=== PATIENT | male | born 1975 | race Caucasian/White ===

== ENCOUNTER 2020-01-21 12:46 | Emergency (ER) | payer SELFPAY ==
[~2020-01-21] VITALS: Ht 172.7 cm; Wt 120.0 kg
--- NOTE | 2020-01-21 13:06 | PHYS DOC ---
General Adult EDM: Chief Complaint: FLANK PAIN HPI: HPI: History obtained from patient and . Patient is a 44-year-old male with past medical history notable for gout who presents with chief complaint of sudden onset left flank pain that began 5 hours prior to arrival. States pain is sharp in nature nature. States it is nonradiating. States it is difficulty comfortable. Start ibuprofen with no relief. Denies any history of kidney stones. Denies urinary changes including hematuria, polyuria, dysuria, or changes in urinary output. Notes 2 episodes of dry heaving. Denies fevers. Denies syncope. 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 No other abdominal surgical history. Denies cough or fever. Denies shortness of breath or chest pain. No other complaints. Review of Systems: Review of Systems: Constitutional: Denies fever or chills. [] Eyes: Denies change in visual acuity. [] HENT: Denies nasal congestion or sore throat. [] Respiratory: Denies cough or shortness of breath. [] Cardiovascular: Denies chest pain or edema. [] GI: Positive for nausea and flank pain : Denies dysuria. [] Musculoskeletal: Denies back pain or joint pain. [] Integument: Denies rash. [] Neurologic: Denies headache, focal weakness or sensory changes. [] Endocrine: Denies polyuria or polydipsia. [] Lymphatic: Denies swollen glands. [] Psychiatric: Denies depression or anxiety. [] Heart Score: Risk Factors: Risk Factors: DM, Current or recent (<one month) smoker, HTN, HLP, family history of CAD, obesity. Risk Scores: Score 0 - 3: 2.5% MACE over next 6 weeks - Discharge Home Score 4 - 6: 20.3% MACE over next 6 weeks - Admit for Clinical Observation Score 7 - 10: 72.7% MACE over next 6 weeks - Early Invasive Strategies Physical Exam: PE: Constitutional: Well developed, well nourished, no acute distress, non-toxic appearance. [] HENT: Normocephalic, atraumatic, bilateral external ears normal, oropharynx moist, no oral exudates, nose normal. [] Eyes: PERRLA, EOMI, conjunctiva normal, no discharge. [] Neck: Normal range of motion, no tenderness, supple, no stridor. [] Cardiovascular:Heart rate regular rhythm, no murmur [] Lungs & Thorax: Bilateral breath sounds clear to auscultation [] Abdomen: soft, no tenderness, no masses, no pulsatile masses. [] Skin: Warm, dry, no erythema, no rash. [] Back: + 5/5 motor strength in dorsiflexion and plantarflexion of the great toes bilaterally. Sensation intact between the webbing of the first and second toes bilaterally. Mild left CVA tenderness Extremities: No tenderness, no cyanosis, no clubbing, ROM intact, no edema. [] Neurologic: Alert and oriented X 3, normal motor function, normal sensory function, no focal deficits noted. [] Psychologic: Affect normal, judgement normal, mood normal. [] Current Patient Data: Labs: Laboratory Tests Test 01/21/20 12:15 01/21/20 13:04 Urine Collection Type Unknown Urine Color Yellow Urine Clarity Clear Urine pH 6.5 Urine Specific [place] 1.020 Urine Protein Negative mg/dL Urine Glucose (UA) Negative mg/dL Urine Ketones (Stick) Negative mg/dL Urine Blood Negative Urine Nitrite Negative Urine Bilirubin Negative Urine Urobilinogen Dipstick 0.2 mg/dL Urine Leukocyte Esterase Negative Urine RBC 1-2 /HPF Urine WBC Occ /HPF Urine Bacteria 0 /HPF Urine Mucus Mod /LPF White Blood Count 10.8 x10^3/uL Red Blood Count 5.27 x10^6/uL Hemoglobin 16.3 g/dL Hematocrit 46.2 % Mean Corpuscular Volume 88 fL Mean Corpuscular Hemoglobin 31 pg Mean Corpuscular Hemoglobin Concent 35 g/dL Red Cell Distribution Width 13.4 % Platelet Count 222 x10^3/uL Neutrophils (%) (Auto) 81 % Lymphocytes (%) (Auto) 13 % Monocytes (%) (Auto) 5 % Eosinophils (%) (Auto) 1 % Basophils (%) (Auto) 1 % Neutrophils # (Auto) 8.8 x10^3/uL Lymphocytes # (Auto) 1.4 x10^3/uL Monocytes # (Auto) 0.5 x10^3/uL Eosinophils # (Auto) 0.1 x10^3/uL Basophils # (Auto) 0.1 x10^3/uL Sodium Level 140 mmol/L Potassium Level 4.1 mmol/L Chloride Level 103 mmol/L Carbon Dioxide Level 25 mmol/L Anion Gap 12 Blood Urea Nitrogen 17 mg/dL Creatinine 1.4 mg/dL Estimated GFR (Cockcroft-Gault) 55.6 Glucose Level 135 mg/dL Calcium Level 8.8 mg/dL Current Medications Medications (Trade) Dose Ordered Sig/Wil Route PRN Reason Start Time Stop Time Status Last Admin Dose Admin Morphine Sulfate (Morphine Sulfate) 4 mg 1X ONCE IV 01/21/20 13:15 01/21/20 13:16 DC 01/21/20 13:14 Ondansetron HCl (Zofran) 4 mg 1X ONCE IVP 01/21/20 13:15 01/21/20 13:16 DC 01/21/20 13:14 Ketorolac Tromethamine (Toradol 15mg Vial) 15 mg 1X ONCE IVP 01/21/20 13:15 01/21/20 13:16 DC 01/21/20 13:14 Sodium Chloride 1,000 ml @ 1,000 mls/hr 1X ONCE IV 01/21/20 13:15 01/21/20 14:14 DC 01/21/20 13:15 Acetaminophen/ Hydrocodone Bitart (Lortab 5/325) 1 tab 1X ONCE PO 01/21/20 15:00 01/21/20 15:01 DC 01/21/20 15:12 Laboratory Tests Test 01/21/20 13:04 White Blood Count 10.8 x10^3/uL Red Blood Count 5.27 x10^6/uL Hemoglobin 16.3 g/dL Hematocrit 46.2 % Mean Corpuscular Volume 88 fL Mean Corpuscular Hemoglobin 31 pg Mean Corpuscular Hemoglobin Concent 35 g/dL Red Cell Distribution Width 13.4 % Platelet Count 222 x10^3/uL Neutrophils (%) (Auto) 81 % Lymphocytes (%) (Auto) 13 % Monocytes (%) (Auto) 5 % Eosinophils (%) (Auto) 1 % Basophils (%) (Auto) 1 % Neutrophils # (Auto) 8.8 x10^3/uL Lymphocytes # (Auto) 1.4 x10^3/uL Monocytes # (Auto) 0.5 x10^3/uL Eosinophils # (Auto) 0.1 x10^3/uL Basophils # (Auto) 0.1 x10^3/uL Sodium Level 140 mmol/L Potassium Level 4.1 mmol/L Chloride Level 103 mmol/L Carbon Dioxide Level 25 mmol/L Anion Gap 12 Blood Urea Nitrogen 17 mg/dL Creatinine 1.4 mg/dL Estimated GFR (Cockcroft-Gault) 55.6 Glucose Level 135 mg/dL Calcium Level 8.8 mg/dL Current Medications Medications (Trade) Dose Ordered Sig/Wil Route PRN Reason Start Time Stop Time Status Last Admin Dose Admin Morphine Sulfate (Morphine Sulfate) 4 mg 1X ONCE IV 01/21/20 13:15 01/21/20 13:16 DC 01/21/20 13:14 Ondansetron HCl (Zofran) 4 mg 1X ONCE IVP 01/21/20 13:15 01/21/20 13:16 DC 01/21/20 13:14 Ketorolac Tromethamine (Toradol 15mg Vial) 15 mg 1X ONCE IVP 01/21/20 13:15 01/21/20 13:16 DC 01/21/20 13:14 Sodium Chloride 1,000 ml @ 1,000 mls/hr 1X ONCE IV 01/21/20 13:15 01/21/20 14:14 DC 01/21/20 13:15 Vital Signs: Vital Signs Date Time Temp Pulse Resp B/P (MAP) Pulse Ox O2 Delivery O2 Flow Rate FiO2 01/21/20 13:14 16 99 Room Air 01/21/20 13:00 98.3 71 24 151/92 (111) 99 Room Air 98.3 EKG: EKG: [] Radiology/Procedures: Radiology/Procedures: [facility] [address] [place] [address] IMAGING REPORT Signed PATIENT: SOLANGE EARLY ACCOUNT: [id number] : 1975 LOCATION: ER AGE: 44 SEX: M EXAM STATUS: REG ER ORD. PHYSICIAN: SP CHEEMA DO REASON: L flank pain PROCEDURE: CT ABDOMEN PELVIS WO CONTRAST PQRS Compliance Statement: One or more of the following individualized dose reduction techniques were utilized for this examination: 1. Automated exposure control 2. Adjustment of the mA and/or kV according to patient size 3. Use of iterative reconstruction technique CT ABDOMEN PELVIS WO CONTRAST Clinical Indication: Reason: L flank pain / Spl. Instructions: / History: Comparison: None. Technique: Helical CT imaging of the abdomen and pelvis is performed without IV or oral contrast. Findings: Minimal bilateral lower lobe atelectasis posteriorly. Cardiac size normal. Mild fatty infiltration of the liver. Focal fatty sparing along the gallbladder fossa. Tiny fat density of the spleen. Gallbladder, pancreas, adrenal glands, and abdominal aorta are normal. There is an 11 mm gokul hepatis lymph node. The right kidney is normal. There is no left renal calculus. Mild left perinephric stranding. Mild left hydroureteronephrosis secondary to a 3 mm calculus at the left ureterovesicular junction, nearly in the bladder, image 218. The stomach is unremarkable. There is no dilated small bowel. The appendix is normal. There is no colon wall thickening. No abdominal adenopathy or free fluid. Subcentimeter mesenteric lymph nodes. The urinary bladder is normal. Prostate and seminal vesicles are normal. No pelvic free fluid. No acute bone abnormality. IMPRESSION: 1. Mild left obstructive uropathy secondary to a 3 mm calculus at the ureterovesicular junction. 2. Mild fatty infiltration of the liver. Electronically signed by: Salty Dailey MD (01/21/2020 2:26 PM) [id number] DICTATED and SIGNED BY: SALTY DAILEY MD DATE: 01/21/201425 [] Course & Med Decision Making: Course & Med Decision Making Pertinent Labs and Imaging studies reviewed. (See chart for details) [] Patient is a 44-year-old male who presents with chief complaint of sudden onset left flank pain. CT imaging does reveal a 3 mm mildly obstructive left kidney stone at the level of the UVJ. Very mild elevation of his creatinine at 1.4. Urinalysis without evidence of infection. Clinically patient does not endorse any infectious symptoms. I do feel the patient is overall appropriate for discharge home. His pain was well controlled in the emergency department he did tolerate p.o. He was instructed to follow-up with his primary care physician in the next 2 to 3 days. He will be given a referral to urology if needed. He will be discharged home with Myton, Zofran, and Flomax. Return precautions discussed and understood. Stable for discharge. Jalen Disclaimer: Jalen Disclaimer: This electronic medical record was generated, in whole or in part, using a voice recognition dictation system. Departure Departure Impression: Primary Impression: Ureterolithiasis Disposition: 01 DC HOME SELF CARE/HOMELESS Condition: STABLE Patient Instructions: Kidney Stones Additional Instructions: Urology Dr. Negro Day Brooker [address] [place] [address] Call Brooker [phone] Please follow-up with your primary care physician in the next 2 to 3 days. [facility] [address] [place] [address] [facility] [address] [place] [address] [facility] [address] [facility] [place] [address] [facility] [address] [place] [address] [facility] [address] [place] [address] [facility] [address] [place] [address] [facility] [address] [place] [address] [facility] [address] [place] [address] [facility] [address] [place] [address] [facility] [address] [place] [address] Scripts Tamsulosin Hcl (FLOMAX) 0.4 Mg Cap.er.24h 1 CAP PO QHS, #10 CAP 11 Refills Prov: SP CHEEMA DO 01/21/20 Ondansetron Hcl (ZOFRAN) 4 Mg Tablet 4 MG PO PRN TID PRN for NAUSEA, #15 nausea/vomiting Prov: SP CHEEMA DO 01/21/20 Hydrocodone/Apap 5-325 (NORCO 5-325 TABLET) 1 Each Tablet 1-2 EACH PO PRN Q6HRS PRN for PAIN, #10 as needed for pain Prov: SP CHEEMA DO 01/21/20 PS CHEEMA DO Jan 21, 2020 13:06
[2020-01-21 13:15] LABS: BASO # 0.1 x10^3/uL (0.0-0.2); BASO % 1 % (0-3); EOS # 0.1 x10^3/uL (0.0-0.7); EOS % 1 % (0-3); HEMATOCRIT 46.2 % (39.0-53.0); HEMOGLOBIN 16.3 g/dL (13.0-17.5); LYMPH # 1.4 x10^3/uL (1.0-4.8); LYMPH % 13 % (24-48); MEAN CORPUSCULAR HEMOGLOBIN 31 pg (25-35); MEAN CORPUSCULAR HGB CONC 35 g/dL (31-37); MEAN CORPUSCULAR VOLUME 88 fL (79-100); MONO # 0.5 x10^3/uL (0.0-1.1); MONO % 5 % (0-9); NEUT # 8.8 x10^3/uL (1.8-7.7); NEUT % 81 % (31-73); PLATELET COUNT 222 x10^3/uL (140-400); RED BLOOD COUNT 5.27 x10^6/uL (4.30-5.70); RED CELL DISTRIBUTION WIDTH 13.4 % (11.5-14.5); WHITE BLOOD COUNT 10.8 x10^3/uL (4.0-11.0)
[2020-01-21] MEDS ORDERED: IV NORMAL SALINE 1000ML BAG 1,000 ML IV ONE (13:15)
[2020-01-21] MEDS ORDERED: ONDANSETRON PF 4 MG/2 ML VIAL. IVP ONE (13:15)
[2020-01-21] MEDS ORDERED: MORPHINE SULFATE 4 MG/ML VIAL. IV ONE (13:15)
[2020-01-21] MEDS ORDERED: KETOROLAC 15 MG/ML VIAL. IVP ONE (13:15)
[2020-01-21 13:21] LABS: CALCIUM 8.8 mg/dL (8.5-10.1); CREATININE 1.4 mg/dL (0.7-1.3); GFR 55.6; POTASSIUM 4.1 mmol/L (3.5-5.1)
[2020-01-21 14:24] LABS: BILIRUBIN,URINE NEGATIVE (NEG); CLARITY,URINE CLEAR; COLOR,URINE YELLOW; NITRITE,URINE NEGATIVE (NEG); PH,URINE 6.5 (<5.0-8.0); PROTEIN,URINE NEGATIVE (NEG-TRACE); UROBILINOGEN,URINE 0.2 mg/dL (0.2 mg/dL)
--- NOTE | 2020-01-21 14:29 | RAD ---
PQRS Compliance Statement: One or more of the following individualized dose reduction techniques were utilized for this examination: 1. Automated exposure control 2. Adjustment of the mA and/or kV according to patient size 3. Use of iterative reconstruction technique CT ABDOMEN PELVIS WO CONTRAST Clinical Indication: Reason: L flank pain / Spl. Instructions: / History: Comparison: None. Technique: Helical CT imaging of the abdomen and pelvis is performed without IV or oral contrast. Findings: Minimal bilateral lower lobe atelectasis posteriorly. Cardiac size normal. Mild fatty infiltration of the liver. Focal fatty sparing along the gallbladder fossa. Tiny fat density of the spleen. Gallbladder, pancreas, adrenal glands, and abdominal aorta are normal. There is an 11 mm gokul hepatis lymph node. The right kidney is normal. There is no left renal calculus. Mild left perinephric stranding. Mild left hydroureteronephrosis secondary to a 3 mm calculus at the left ureterovesicular junction, nearly in the bladder, image 218. The stomach is unremarkable. There is no dilated small bowel. The appendix is normal. There is no colon wall thickening. No abdominal adenopathy or free fluid. Subcentimeter mesenteric lymph nodes. The urinary bladder is normal. Prostate and seminal vesicles are normal. No pelvic free fluid. No acute bone abnormality. IMPRESSION: 1. Mild left obstructive uropathy secondary to a 3 mm calculus at the ureterovesicular junction. 2. Mild fatty infiltration of the liver. Electronically signed by: Salty Dailey MD (01/21/2020 2:26 PM) [id number]
[2020-01-21 14:43] VITALS: BP 136/89
[2020-01-21] MEDS ORDERED: HYDR-3164 PO (14:54)
[2020-01-21] MEDS ORDERED: ONDA4TAB7 PO (14:54)
[2020-01-21] MEDS ORDERED: TAMS0.4C97 PO (14:54)
[2020-01-21] MEDS ORDERED: HYDROcodone/APAP 5/325MG 1 TAB TABLET PO ONE (15:00)
[2020-01-21 15:17] LABS: BACTERIA,URINE 0 /HPF (0-FEW); WBC,URINE OCC /HPF (0-4)
== END 2020-01-21 15:35 | disposition home or self-care (01) ==
LOC: ER 12:46
DX: N13.2 Hydronephrosis with renal and ureteral calculous obstruction (principal); M54.2 Cervicalgia; R11.0 Nausea; R10.9 Unspecified abdominal pain
CPT/HCPCS: 36415; 74176; 80048; 81001; 85025; 96361; 96374; 96375; 99285; J1885; J2270; J2405; J7030